=== PATIENT | female | born 1990 | race African-American/Black ===

== ENCOUNTER 2024-12-24 19:32 | Emergency (ER) | payer MEDICAID, OTHER ==
[~2024-12-24] VITALS: Ht 154.9 cm; Wt 76.7 kg
[2024-12-24] MEDS ORDERED: ENOX40DI SQ (20:07)
[2024-12-24] MEDS ORDERED: diphenhydrAMINE 50 MG/1 ML VIAL ONE ×2 (20:45→22:15)
[2024-12-24] MEDS ORDERED: ONDANSETRON 4 MG/2 ML VIAL ONE ×2 (20:45→22:14)
[2024-12-24] MEDS ORDERED: HYDROMORPHONE 2 MG/1 ML DISP.SYRIN ONE (20:46)
[2024-12-24] MEDS: diphenhydrAMINE 50 MG/1 ML VIAL IV ONE ×2 (20:58→22:25)
[2024-12-24] MEDS: HYDROMORPHONE 1 MG/1 ML DISP.SYRIN IV ONE ×2 (20:58→22:25)
[2024-12-24] MEDS: ONDANSETRON 4 MG/2 ML VIAL IV ONE ×2 (20:58→22:25)
[2024-12-24] MEDS: IV NORMAL SALINE 1000 ML BAG IV ONE (21:18)
[2024-12-24 21:20] LABS: PLATELET COUNT (AUTO) 315 K/uL (179-408); RED BLOOD CELL COUNT(AUTO) 4.15 MIL/uL (3.63-4.92); RED CELL DISTRIBUTION WIDTH 15.1 % (12.3-17.7); WHITE BLOOD COUNT (AUTO) 5.4 K/uL (3.8-11.8)
[2024-12-24 21:33] LABS: CREATININE 0.8 mg/dL (0.6-1.3); SODIUM SERUM 141.0 mmol/L (136-145); UREA NITROGEN, BLOOD 16.0 mg/dL (7-18)
[2024-12-24 21:39] LABS: PREGNANCY TEST SERUM QUAN 1.0 miul/L (0-6)
[2024-12-24] MEDS ORDERED: HYDROMORPHONE 1 MG/1 ML DISP.SYRIN ONE (22:15)
[2024-12-25] MEDS ORDERED: diphenhydrAMINE 50 MG/1 ML VIAL ONE (09:45)
[2024-12-25] MEDS ORDERED: ONDANSETRON 4 MG/2 ML VIAL ONE (09:45)
[2024-12-25] MEDS ORDERED: HYDROMORPHONE 1 MG/1 ML DISP.SYRIN ONE (09:45)
[2024-12-25] MEDS: diphenhydrAMINE 50 MG/1 ML VIAL IV ONE (09:54)
[2024-12-25] MEDS: ONDANSETRON 4 MG/2 ML VIAL IV ONE (09:54)
[2024-12-25] MEDS: HYDROMORPHONE 1 MG/1 ML DISP.SYRIN IV ONE (09:54)
[2024-12-25 10:00] VITALS: BP 131/78
[2024-12-25] MEDS ORDERED: OXYC-128 PO (10:25)
[2024-12-25 10:43] VITALS: BP 131/78; O2SAT 98
== END 2024-12-25 10:43 | disposition home or self-care (01) ==
LOC: ER 21:31
DX: D57.00 Hb-SS disease with crisis, unspecified (principal); M79.604 Pain in right leg; M79.605 Pain in left leg; Z86.718 Personal history of other venous thrombosis and embolism; Z88.6 Allergy status to analgesic agent; Z88.8 Allergy status to other drugs, medicaments and biological substances
CPT/HCPCS: 99285; 93970; 96374; 96375; 96361; 80048; 85025; 85730; 84702; 36415; J1200 ×3; J2405 ×3; J1171 ×3; J7040; A4606; A4663